=== PATIENT | female | born 1950 | race Caucasian/White ===

== ENCOUNTER → 2016-10-18 | Outpatient (CLI) | payer OTHER ==
[2016-10-18 18:10] LABS: ALT/SGPT 51 U/L (12-78); AST/SGOT 34 U/L (15-37); BLOOD UREA NITROGEN 16 mg/dl (7-18); BUN/CREATININE RATIO 14.1 (10-20); CARBON DIOXIDE 30 mmol/L (21-32); CHLORIDE 105 mmol/L (98-107); GLUCOSE 122 mg/dl (70-99); POTASSIUM 4.4 mmol/L (3.5-5.1); SODIUM 141 mmol/L (136-145)
[2016-10-18 18:15] LABS: CALCIUM 9.5 mg/dl (8.5-10.1)
[2016-10-18 18:18] LABS: ALB/GLOB RATIO 0.8 (0.9-2); ALKALINE PHOSPHATASE 97 U/L (45-117); CHOLESTEROL 156 mg/dl (0-200); CHOLESTEROL/HDL RATIO 3.6; HDL CHOLESTEROL 43 mg/dl; LDL CHOLESTEROL CALCULATED 91 mg/dl; TRIGLYCERIDES 111 mg/dl (0-150); VERY LOW DENSITY LIPOPROT CALC 22 mg/dl
[2016-10-19 05:47] LABS: ESTIMATED AVERAGE GLUCOSE 126 mg/dl; HA1C FLAG Normal (Normal)
--- NOTE | 2017-03-21 10:15 | CODING QUERY MEDICAL NECESSITY ---
CQSUPPORTING DIAGNOSIS NEEDED A supporting diagnosis is required for the test/procedure performed on this patient in order for us to be reimbursed by the patient's insurance. Please provide a supporting diagnosis for the following test/procedure listed below next to the test name along with your signature. *If there is no additional diagnosis for this patient that would support the following test/procedure please document that below next to the test/procedure. Test(s)/Procedure(s) that require a supporting diagnosis: DOS 10/18/16 VITAMIN D TEST Provider Signature: Date: Thank you Candace Quiles Health Information Management Once completed, please kindly fax back to [phone] For questions please call [phone]
== END | disposition home or self-care (01) ==
LOC: C.LABMFLN 12:56
PROVIDERS: ATTEND Family Medicine
DX: E78.00 Pure hypercholesterolemia, unspecified (principal); I25.10 Atherosclerotic heart disease of native coronary artery without angina pectoris; R74.8 Abnormal levels of other serum enzymes; I10 Essential (primary) hypertension; E53.9 Vitamin B deficiency, unspecified; E04.2 Nontoxic multinodular goiter; R73.03 Prediabetes; E55.9 Vitamin D deficiency, unspecified

== ENCOUNTER → 2016-12-26 | Outpatient (CLI) | payer OTHER ==
[2016-12-26 18:21] LABS: BLOOD UREA NITROGEN 17 mg/dl (7-18)
== END | disposition home or self-care (01) ==
LOC: C.LABMFLN 16:15
PROVIDERS: ATTEND Family Medicine
DX: M54.2 Cervicalgia (principal); G95.9 Disease of spinal cord, unspecified

== ENCOUNTER → 2016-12-28 | Outpatient (CLI) | payer OTHER ==
[~2016-12-28] MED LIST: GADAVIST IV PRN
--- NOTE | 2016-12-28 16:51 | DIAGNOSTIC IMAGING REPORT ---
CERVICAL SPINE COMBO CLINICAL HISTORY: 66 years-old Female presenting with CERVICALGIA,CERVIAL MYOPATHY. TECHNIQUE: Multisequence, multiplanar MR imaging of the cervical spine was performed before and after the administration of intravenous contrast. IV contrast: 14 mL of Gadavist. COMPARISON: PET/CT from 12/29/2014. FINDINGS: Localizer images: Unremarkable. Postsurgical changes of laminectomies from C4 through C6. Vertebral body heights, alignment, and bone marrow signal intensity maintained. Intervertebral disc spaces preserved with the exception of mild disc height loss at C5-6. Mild multilevel degenerative changes with disc osteophyte complex is noted from C3-4 to C6-7. No acute fracture or subluxation. Postcontrast imaging is unremarkable. Degenerative changes further detailed below: C2-3: Normal. C3-4: Small disc osteophyte complex with uncovertebral hypertrophy resulting in mild bilateral neural foraminal narrowing. C4-5: Disc osteophyte complex and uncovertebral hypertrophy result in moderate bilateral neural foraminal narrowing. Minimal effacement of the ventral thecal sac without contouring of the spinal cord. C5-6: Disc osteophyte complex with uncovertebral hypertrophy results in moderate bilateral neural foraminal narrowing. No significant spinal canal narrowing. C6-7: Small disc osteophyte complex without significant neural foraminal or spinal canal narrowing. Spinal cord normal in morphology and signal intensity. Craniocervical junction normal. Paraspinal soft tissues within normal limits. IMPRESSION: 1. Postsurgical changes of laminectomies from C4 through C6. No significant spinal canal stenosis. 2. Multilevel degenerative changes with disc osteophyte complexes and uncovertebral hypertrophy resulting in varying degrees of neural foraminal narrowing, most severe at C4-5 and C5-6. Electronically signed by: Blu Allen M.D. 12/28/2016 4:50 PM Dictated Date/Time: 12/28/2016 4:42 PM
--- NOTE | 2016-12-28 18:00 | DIAGNOSTIC IMAGING REPORT ---
C-SPINE ROUTINE 4 OR 5 VIEWS CLINICAL HISTORY: 66 years-old Female presenting with BACK PAIN, cervicalgia, cervical myelopathy. TECHNIQUE: Also, bilateral oblique, lateral, and open-mouth odontoid views of the cervical spine were obtained. COMPARISON: Correlation made to MR from 12/28/2016. FINDINGS: The C7 vertebral body is fully visualized. Postsurgical changes of laminectomies of C4-C6. Normal cervical lordosis. Vertebral body heights maintained. Multilevel degenerative changes most prominently from C4-5 to C6-7 with disc osteophyte complexes. No significant osseous neural foraminal narrowing. Please see separately dictated cervical spine MR for soft tissue neural foraminal narrowing. The lateral masses of C1 articulate normally with C2. No prevertebral soft tissue swelling. No radiographic evidence of acute fracture or subluxation. IMPRESSION: 1. Postsurgical changes of C4-C6 laminectomies. 2. Multilevel degenerative changes. No radiographic evidence of acute fracture or subluxation. 3. Please see separately dictated cervical spine MR for soft tissue neural foraminal narrowing. Electronically signed by: Blu Allen M.D. 12/28/2016 5:59 PM Dictated Date/Time: 12/28/2016 5:56 PM
--- NOTE | 2016-12-28 18:03 | DIAGNOSTIC IMAGING REPORT ---
L-SPINE MIN 4 VIEWS ROUTINE CLINICAL HISTORY: 66 years-old Female presenting with BACK PAIN. TECHNIQUE: Frontal, bilateral oblique, and lateral views of the lumbar spine and coned in lateral view of the lumbosacral junction were obtained. COMPARISON: Correlation made to PET/CT from 12/29/2014. FINDINGS: Vertebral body heights and alignment maintained. Intervertebral disc spaces preserved. Osteopenia. Dextrocurvature of the lumbar spine. No significant degenerative change is radiographically evident. No gross evidence of osseous neural foraminal narrowing. Osteopenia limits evaluation for acute fracture. No compression deformity. Mild gaseous distention of colon. No gross pneumoperitoneum. IMPRESSION: 1. Scoliosis. 2. Osteopenia, which limits evaluation for acute fracture. No compression deformity. Electronically signed by: Blu Allen M.D. 12/28/2016 6:02 PM Dictated Date/Time: 12/28/2016 5:59 PM
--- NOTE | 2016-12-28 18:06 | DIAGNOSTIC IMAGING REPORT ---
THORACIC SPINE 3 VIEWS ROUTINE CLINICAL HISTORY: 66 years-old Female presenting with BACK PAIN. TECHNIQUE: Frontal and lateral views of the thoracic spine were obtained. COMPARISON: Correlation made to PET/CT from 2015. FINDINGS: Normal thoracic kyphosis. Vertebral body heights and alignment grossly normal limited evaluation of the upper thoracic spine. Intervertebral disc spaces also grossly preserved. Multilevel degenerative changes most prominently in the lower thoracic region. No evidence of compression deformity. Visualized portion of the thorax demonstrate atherosclerosis of the aortic arch and grossly clear lungs. IMPRESSION: No evidence of compression deformity. Multilevel degenerative changes. Electronically signed by: Blu Allen M.D. 12/28/2016 6:04 PM Dictated Date/Time: 12/28/2016 6:02 PM
== END | disposition home or self-care (01) ==
LOC: C.MRI 14:58
PROVIDERS: ATTEND Family Medicine
DX: M54.9 Dorsalgia, unspecified (principal); M54.2 Cervicalgia; M50.321 Other cervical disc degeneration at C4-C5 level; M50.323 Other cervical disc degeneration at C6-C7 level; M41.9 Scoliosis, unspecified; M85.88 Other specified disorders of bone density and structure, other site; I70.0 Atherosclerosis of aorta; M25.78 Osteophyte, vertebrae; Z98.890 Other specified postprocedural states

== ENCOUNTER → 2017-02-08 | Outpatient (CLI) | payer OTHER | END | disposition home or self-care (01) | LOC: C.LABMFLN 06:40 | PROVIDERS: ATTEND Family Medicine | DX: L97.929 Non-pressure chronic ulcer of unspecified part of left lower leg with unspecified severity (principal) ==